=== PATIENT | female | born 1940 | race Hispanic/Latino ===

== ENCOUNTER 2018-03-17 07:32 | Day surgery (SDC) | payer MEDICARE ==
[2018-03-09 10:59] VITALS: BMI 28.1
[2018-03-17] MEDS ORDERED: Propofol 10 mg/ml Inj (20 ML) ONE (09:08)
[2018-03-17] MEDS ORDERED: Sodium Chloride 0.9% 1,000 ML IV SCH (09:45)
[2018-03-17 10:12] VITALS: PULSE 74
[2018-03-17 11:07] VITALS: BP 138/64; RESP 16; TEMP 97.8; O2SAT 95
== END 2018-03-17 11:01 | disposition home or self-care (01) ==
LOC: ENDO 07:32
PROVIDERS: ATTEND Specialist
DX: D50.9 Iron deficiency anemia, unspecified (principal); D12.2 Benign neoplasm of ascending colon; K57.30 Diverticulosis of large intestine without perforation or abscess without bleeding; K64.8 Other hemorrhoids; I10 Essential (primary) hypertension; I25.10 Atherosclerotic heart disease of native coronary artery without angina pectoris; I44.7 Left bundle-branch block, unspecified; Z88.1 Allergy status to other antibiotic agents; Z87.11 Personal history of peptic ulcer disease; Z88.0 Allergy status to penicillin; Z88.3 Allergy status to other anti-infective agents
CPT/HCPCS: 45380; 88305; J2704; J7030

== ENCOUNTER 2018-04-29 07:42 | Day surgery (SDC) | payer MEDICARE, BC ==
[2018-03-09 10:59] VITALS: BMI 28.1
[2018-04-29] MEDS ORDERED: Propofol 10 mg/ml Inj (20 ML) ONE (09:12)
[2018-04-29] MEDS ORDERED: Sodium Chloride 0.9% 1,000 ML IV SCH (09:45)
[2018-04-29] MEDS ORDERED: Etomidate 20 mg/10ml Inj IV ONE (09:47)
[2018-04-29 10:35] VITALS: BP 144/73; PULSE 79; RESP 18; TEMP 97.8; O2SAT 97
== END 2018-04-29 10:48 | disposition home or self-care (01) ==
LOC: ENDO 07:42
PROVIDERS: ATTEND Specialist
DX: D50.9 Iron deficiency anemia, unspecified (principal); K21.0 Gastro-esophageal reflux disease with esophagitis; K31.84 Gastroparesis; K44.9 Diaphragmatic hernia without obstruction or gangrene; K29.50 Unspecified chronic gastritis without bleeding; K63.5 Polyp of colon; R73.03 Prediabetes; I25.10 Atherosclerotic heart disease of native coronary artery without angina pectoris; I10 Essential (primary) hypertension; M19.90 Unspecified osteoarthritis, unspecified site; M48.00 Spinal stenosis, site unspecified; Z88.1 Allergy status to other antibiotic agents; Z88.5 Allergy status to narcotic agent; Z88.0 Allergy status to penicillin
CPT/HCPCS: 43239; 82948; 88305; 88312; 88342; J2704; J7030